=== PATIENT | male | born 1955 | race Caucasian/White ===

== ENCOUNTER 2017-07-01 16:09 | Outpatient (CLI) | payer BC ==
--- NOTE | 2017-07-02 10:05 | XRAY Report ---
THREE VIEW LEFT FOOT: 07/01/2017 CLINICAL INDICATION: Pain. FINDINGS: AP, lateral, and oblique views of the left foot demonstrate mild osteoarthritic changes of the 1st metatarsophalangeal joint and interphalangeal joints. There is no evidence of acute fracture or dislocation. Proximal soft tissue swelling is noted. Plantar and posterior calcaneal spurring is present. IMPRESSION: OSTEOARTHRITIC CHANGES. NO EVIDENCE OF ACUTE FRACTURE. JOB #: [id number] EXT JOB #:[id number]
== END 2017-07-01 16:10 | disposition home or self-care (01) ==
LOC: DI 16:09
PROVIDERS: ATTEND Specialist
DX: M79.672 Pain in left foot (principal)

== ENCOUNTER 2017-10-10 12:52 | Emergency (ER) | payer BC ==
[2017-10-10] MEDS ORDERED: LIDOCAINE 1% 2 ML VIAL ONE (13:07)
[2017-10-10 13:16] VITALS: BP 163/91
--- NOTE | 2017-10-10 15:03 | ED Physician Documentation ---
PD HPI HEENT - Stated complaint Stated Complaint: EAR PX/HEADACHE - Chief complaint Chief Complaint: Heent - History obtained from History obtained from: Patient - History of Present Illness Timing - onset: How many weeks ago (3) Timing - duration: Weeks (3) Timing - details: Gradual onset, Still present Location: Right ear Improves: Nothing Associated symptoms: Headache, Other (hearing loss). No: Fever, Congestion Similar symptoms before: Diagnosis (cerumen impaction) Recently seen: Clinic - Additional information Additional information: 62-year-old male has had some hearing loss and fullness in the right ear and he has some cerumen impacted there he has had cerumen impacted previously. He did go to the clinic try and get this removed and they were unsuccessful he is come to the emergency department for treatment. He has been into the ear nose and throat doctor previously for irrigation. Review of Systems Constitutional: denies: Fever Eyes: denies: Decreased vision Ears: reports: Loss of hearing, Ear pain. denies: Drainage/discharge Nose: reports: Congestion Throat: denies: Sore throat Cardiac: denies: Chest pain / pressure Respiratory: denies: Dyspnea, Cough PD PAST MEDICAL HISTORY - Present Medications Home Medications: Ambulatory Orders Medication Instructions Recorded Confirmed No Known Home Medications [No 10/10/17 10/10/17 Known Home Medications] - Allergies Allergies/Adverse Reactions: Allergies Allergy/AdvReac Type Severity Reaction Status Date / Time No Known Drug Allergies Allergy Verified 10/10/17 12:58 - Social History Does the pt smoke?: No Smoking Status: Never smoker PD ED PE NORMAL - Vitals Vital signs reviewed: Yes (Hypertensive) - General General: Alert and oriented X 3, No acute distress, Well developed/nourished - HEENT HEENT: Atraumatic, PERRL, EOMI, Other (Left TM is clear and the canal is clear the right TM is obscured by cerumen. This is not easily removed. After irrigation the TM on the left is clear.) - Neck Neck: Supple, no meningeal sign, No bony TTP - Cardiac Cardiac: RRR, No murmur - Respiratory Respiratory: No respiratory distress, Clear bilaterally - Back Back: No CVA TTP, No spinal TTP - Derm Derm: Normal color, Warm and dry, No rash - Extremities Extremities: No deformity, No edema - Neuro Neuro: No motor deficit, No sensory deficit Eye Opening: Spontaneous Motor: Obeys Commands Verbal: Oriented GCS Score: 15 - Psych Psych: Normal mood, Normal affect Results - Vitals Vitals: Vital Signs - 24 hr 10/10/17 13:09 Temperature 36.3 C L Heart Rate 78 Respiratory 17 Rate Blood Pressure 163/91 H O2 Saturation 100 Oxygen O2 Source Room air Procedures - General procedure General procedure: Right ear irrigation: With use of hydrogen peroxide the ear is instilled and allowed to foam for 30 minutes. Following that the ears irrigated with release of a wax cast of the right ear canal, dizziness and return of hearing. PD MEDICAL DECISION MAKING - ED course Complexity details: re-evaluated patient, considered differential, d/w patient ED course: 62-year-old male with cerumen impaction on the right side is treated he does not appear to have otitis externa or otitis media. Departure - Departure Disposition: 01 Home, Self Care Clinical Impression: Cerumen impaction Qualifiers: Laterality: right Qualified Code(s): H61.21 - Impacted cerumen, right ear Condition: Stable Instructions: ED Wax Ear Home Removal Follow-Up: Tommy Moreno MD [Primary Care Provider] - Comments: Today in the Emergency Department your blood pressure was elevated. This can happen from the stress of the visit itself, from a current illness or circumstance or from uncontrolled hypertension. If you take blood pressure medications take your usual mediations, have your blood pressure re-checked in an appropriate setting and follow up any elevation with your primary care doctor.
== END 2017-10-10 15:10 | disposition home or self-care (01) ==
LOC: ED 12:52
DX: H61.21 Impacted cerumen, right ear (principal); R03.0 Elevated blood-pressure reading, without diagnosis of hypertension
CPT/HCPCS: 69209; 99282

== ENCOUNTER 2019-01-13 09:45 | Outpatient (CLI) | payer BC ==
[2019-01-13 17:26] LABS: BASOPHILS % (AUTO) 0.4 %; EOSINOPHILS # (AUTO) 0.2 10^3/uL (0.0-0.7); HGB - HEMOGLOBIN 14.5 g/dL (14.0-18.0); LYMPHOCYTES # (AUTO) 1.9 10^3/uL (1.5-3.5); LYMPHOCYTES % (AUTO) 40.2 %; MEAN CORPUSCULAR HEMOGLOBIN 31.7 pg (27.0-31.0); MEAN CORPUSCULAR HGB CONC 33.3 g/dL (32.0-36.0); MEAN CORPUSCULAR VOLUME 95.1 fL (80.0-94.0); MEAN PLATELET VOLUME 8.4 fL (7.4-11.4); MONOCYTES # (AUTO) 0.4 10^3/uL (0.0-1.0); MONOCYTES % (AUTO) 7.6 %; NEUTROPHILS # (AUTO) 2.3 10^3/uL (1.5-6.6); NEUTROPHILS % (AUTO) 47.8 %; PLT - PLATELET COUNT 161 10^3/uL (130-450); RED BLOOD COUNT 4.58 10^6/uL (4.70-6.10); RED CELL DISTRIBUTION WIDTH 13.2 % (12.0-15.0); WHITE BLOOD COUNT 4.7 x10^3/uL (4.8-10.8)
[2019-01-13 17:56] LABS: ALBUMIN 4.7 g/dL (3.2-5.5); ALBUMIN/GLOBULIN RATIO 1.6 (1.0-2.2); ALKALINE PHOSPHATASE 88 IU/L (42-121); ALT ALANINE AMINOTRANSFERASE 40 IU/L (10-60); AST ASPARTATE AMINOTRANSFERASE 35 IU/L (10-42); BILIRUBIN,TOTAL 0.9 mg/dL (0.2-1.0); BUN - BLOOD UREA NITROGEN 18 mg/dL (6-20); CALCIUM 9.3 mg/dL (8.5-10.3); CARBON DIOXIDE - CO2 27 mmol/L (21-32); CHLORIDE 103 mmol/L (101-111); CHOL/HDL RATIO 3.5 (<5.0); CHOLESTEROL 149 mg/dL; CREATININE 0.8 mg/dL (0.6-1.2); GFR - MDRD 98 (>89); GLUCOSE 100 mg/dL (70-100); HDL CHOLESTEROL 42 mg/dL; LDL CHOLESTEROL,CALCULATED 77 mg/dL; LDL/HDL RATIO 1.8 (<3.6); SODIUM 140 mmol/L (135-145); TOTAL PROTEIN 7.6 g/dL (6.7-8.2); VLDL CHOLESTEROL 30 mg/dL
[2019-01-13 18:25] LABS: HB2 TOTAL 15.7 g/dL; HEMOGLOBIN A1C 0.55 g/dL; HEMOGLOBIN A1C % 5.4 % (4.6-6.2)
== END 2019-01-13 09:46 | disposition home or self-care (01) ==
LOC: LAB.F 09:45
PROVIDERS: ATTEND Specialist
DX: Z13.6 Encounter for screening for cardiovascular disorders (principal); Z12.5 Encounter for screening for malignant neoplasm of prostate
CPT/HCPCS: 36415; 80053; 80061; 83036; 83721; 84153; 85025

== ENCOUNTER 2020-05-11 14:15 | Outpatient (CLI) | payer BC ==
--- NOTE | 2020-05-11 20:35 | XRAY Report ---
PROCEDURE: Hand 3 View RT INDICATIONS: RT HAND PAIN TECHNIQUE: 3 views of the hand(s) acquired. COMPARISON: None available FINDINGS: Bones: No fractures or dislocations. No suspicious bony lesions. Moderate spurring at the distal i nterphalangeal joints 2 through 5, specifically 4. A few dystrophic calcifications at the first CMC j oint. Soft tissues: No suspicious soft tissue calcifications. IMPRESSION: Early osteoarthritic changes at the locations of reported pain. Reviewed by: Sasha Andrade MD on 05/11/2020 8:34 PM PDT Approved by: Sasha Andrade MD on 05/11/2020 8:34 PM PDT Station ID: [id number]
== END 2020-05-11 14:16 | disposition home or self-care (01) ==
LOC: DI 14:15
PROVIDERS: ATTEND Internal Medicine
DX: M19.041 Primary osteoarthritis, right hand (principal); M18.11 Unilateral primary osteoarthritis of first carpometacarpal joint, right hand

== ENCOUNTER 2021-05-05 07:46 | Outpatient (CLI) | payer MEDICARE, BC ==
--- NOTE | 2021-05-05 09:38 | Ultrasound Report ---
PROCEDURE: Aorta Screening INDICATIONS: SCREENING FOR CARDIOVASCULAR DISORDERS TECHNIQUE: Real time scanning was performed of the aorta and iliac arteries, with image documentatio n. COMPARISON: None FINDINGS: Aorta: Proximal aortic diameter measures 3 x 2.8 cm. Mid-aorta measures 2.6 x 2.2 cm. Distal aorti c diameter is 2.5 x 2 cm. Iliac arteries: Right common iliac artery measures 1.3 x 1.2 cm. Left common iliac artery measures 1.4 x 1.2 cm. Incidental note is made of a left inferior liver cyst that measures up to 2 cm. IMPRESSION: No rohan aneurysm is seen, although the proximal aorta measures at the upper limits of normal at 3 cm . Reviewed by: Darío Gayle MD on 05/05/2021 8:36 AM POLO Approved by: Darío Gayle MD on 05/05/2021 8:36 AM POLO Station ID: [id number]
== END 2021-05-05 07:47 | disposition home or self-care (01) ==
LOC: DI 07:46
PROVIDERS: ATTEND Internal Medicine
DX: Z13.6 Encounter for screening for cardiovascular disorders (principal)

== ENCOUNTER 2022-08-24 09:36 | Outpatient (CLI) | payer MEDICARE, BC ==
--- NOTE | 2022-08-24 16:14 | CT Report ---
PROCEDURE: Low Dose Lung Cancer Screen INDICATIONS: CURRENT SMOKER TECHNIQUE: Noncontrast low-dose axial images were acquired from the pulmonary apices to the posterior costophren ic angles. Multiplanar MIP reformats were then reconstructed. For radiation dose reduction, the follo wing was used: automated exposure control, adjustment of mA and/or kV according to patient size. COMPARISON: None. FINDINGS: Image quality: Excellent. Lungs and pleura: Left upper lobe nodule measuring 0.4 cm, (4/58). Left lower lobe pulmonary nodule measuring 0.3 cm, (4/181). Right upper lobe calcified granuloma. Mild emphysematous change. No acute airspace opacity. Central airways are clear. No pleural effusion. No pneumothorax. Mediastinum: Heart size is normal. No pericardial effusion. No mediastinal adenopathy by size crit eria. Thoracic aorta and central pulmonary arteries are normal in size. Esophagus is normal in ebrt dominga. No hiatal hernia. Bones and chest wall: No suspicious bony lesions. No vertebral body compression fractures. No axil desire or supraclavicular adenopathy by size criteria. The thyroid is normal in size and there are no incidental findings. Abdomen: Subtle hypodensities in the liver. Small gallstone. IMPRESSION: 1. A few small pulmonary nodules measuring 0.4 cm or less. Lung RADS 2. Recommend follow-up lung cancer screening chest CT in 12 months. 2. Gallstone. 3. Small hypodensities in the liver. These most likely represent small cysts but are difficult to severino racterize on this exam. Consider abdominal ultrasound for initial further evaluation. Reviewed by: López Barahona MD on 08/24/2022 3:13 PM POLO Approved by: López Barahona MD on 08/24/2022 3:13 PM POLO Station ID: [id number]
== END 2022-08-24 09:37 | disposition home or self-care (01) ==
LOC: DI 09:36
PROVIDERS: ATTEND Student in an Organized Health Care Education/Training Program
DX: Z12.2 Encounter for screening for malignant neoplasm of respiratory organs (principal); R91.8 Other nonspecific abnormal finding of lung field; F17.210 Nicotine dependence, cigarettes, uncomplicated